=== PATIENT | female | born 2000 | race Caucasian/White ===

== ENCOUNTER 2019-04-18 18:16 | Emergency (ER) | payer SELFPAY ==
--- NOTE | 2019-04-18 18:42 | ER Document Report ---
ED Medical Screen (RME) - General Chief Complaint: Urinary Problem Stated Complaint: PAINFUL URINATION Time Seen by Provider: 04/18/19 18:38 Notes: HPI: 18-year-old female presenting to the emergency department complaining of a thick white vaginal discharge with itching and burning over the last 2 to 3 days. Reports some discomfort with urination denies pelvic pain or back pain. States she did have a fever yesterday but also developed a nonproductive cough yesterday I have greeted and performed a rapid initial assessment of this patient. A comprehensive ED assessment and evaluation of the patient, analysis of test results and completion of the medical decision making process will be conducted by additional ED providers PHYSICAL EXAMINATION: GENERAL: Well-appearing, well-nourished and in no acute distress. HEAD: Atraumatic, normocephalic. EYES: sclera anicteric, conjunctiva are normal. ENT: Moist mucous membranes. NECK: Normal range of motion LUNGS: Normal work of breathing, clear to auscultation HEART: 2+ radial pulses bilaterally, regular rate and rhythm ABD: limited by positioning for exam in triage. No tenderness on palpation, exam deferred in triage EXTREMITIES: no pitting or edema. No cyanosis. NEUROLOGICAL: No focal neurological deficits. Moves all extremities spontaneously and on command. PSYCH: Normal mood, normal affect. SKIN: Warm, Dry, normal turgor, no rashes or lesions noted. - Related Data Allergies/Adverse Reactions: No Known Allergies Allergy (Verified 04/18/19 18:37) Physical Exam - Vital signs Vitals: Temp Pulse Resp BP Pulse Ox 98.2 F 78 18 127/81 H 100 04/18/19 18:21 04/18/19 18:21 04/18/19 18:21 04/18/19 18:21 04/18/19 18:21 Course - Vital Signs Vital signs: Temp Pulse Resp BP Pulse Ox 98.2 F 78 18 127/81 H 100 04/18/19 18:21 04/18/19 18:21 04/18/19 18:21 04/18/19 18:21 04/18/19 18:21
[2019-04-18 19:11] LABS: APPEARANCE,URINE SLIGHTLY-CLOUDY; BILIRUBIN,URINE NEGATIVE (NEGATIVE); COLOR,URINE YELLOW; GLUCOSE, URINE NEGATIVE (NEGATIVE); KETONES,URINE TRACE mg/dL (NEGATIVE); LEUKOCYTE ESTERASE,URINE SMALL (NEGATIVE); NITRITE,URINE NEGATIVE (NEGATIVE); PROTEIN,URINE NEGATIVE (NEGATIVE); URINE SPECIFIC GRAVITY 1.019; UROBILINOGEN,URINE NEGATIVE mg/dL (<2.0)
[2019-04-18] MEDS ORDERED: IBUPROFEN 400 MG TABLET PO ONE (20:53)
--- NOTE | 2019-04-18 20:54 | ER Document Report ---
ED General - General Chief Complaint: Vaginal Itching Stated Complaint: PAINFUL URINATION Time Seen by Provider: 04/18/19 18:38 Notes: Patient is a 18 year old female that comes to the emergency department for chief complaint of vaginal discharge and painful urination for the past 2 days. She denies abdominal pain, flank pain. She had her menstrual cycle about 3 weeks ago. She is sexually active with her boyfriend. Patient also states that today she developed a fever, highest fever was up to 101 F, she also states that she has a very sore throat and she feels like she has strep. She states she gets strep annually. She also has an occasional mild cough. She denies any other complaints. She denies any surgeries or daily medications. She smokes, denies recreational drugs. TRAVEL OUTSIDE OF THE [place] IN LAST 30 DAYS: No - Related Data Allergies/Adverse Reactions: No Known Allergies Allergy (Verified 04/18/19 18:37) Past Medical History - General Information source: Patient - Social History Smoking Status: Current Every Day Smoker Chew tobacco use (# tins/day): No Frequency of alcohol use: Occasional Drug Abuse: None Lives with: Spouse/Significant other Family History: Reviewed & Not Pertinent Patient has suicidal ideation: No Patient has homicidal ideation: No - Medical History Medical History: Negative Surgical Hx: Negative - Immunizations Immunizations up to date: Yes Hx Diphtheria, Pertussis, Tetanus Vaccination: Yes Review of Systems - Review of Systems Constitutional: See HPI EENT: See HPI Cardiovascular: No symptoms reported Respiratory: See HPI Gastrointestinal: No symptoms reported Genitourinary: See HPI Female Genitourinary: See HPI Musculoskeletal: No symptoms reported Skin: No symptoms reported Hematologic/Lymphatic: No symptoms reported Neurological/Psychological: No symptoms reported Physical Exam - Vital signs Vitals: Temp Pulse Resp BP Pulse Ox 98.2 F 78 18 127/81 H 100 04/18/19 18:21 04/18/19 18:21 04/18/19 18:21 04/18/19 18:21 04/18/19 18:21 - Notes Notes: GENERAL: Alert, interacts well. No acute distress. Smiling and talkative HEAD: Normocephalic, atraumatic. EYES: Pupils equal, round, and reactive to light. Extraocular movements intact. ENT: Oral mucosa moist, tongue midline. There is a patchy erythematous rash on the posterior pharynx, tonsillitis with erythema and small exudates especially on the right. Uvula is normal, patent airway, no evidence of peritonsillar abscess. Unremarkable sinuses and nasal exam. Unremarkable ears and eyes. NECK: Full range of motion. Supple. Trachea midline. LUNGS: Clear to auscultation bilaterally, no wheezes, rales, or rhonchi. No respiratory distress. HEART: Regular rate and rhythm. No murmur ABDOMEN: Soft, non-tender. Non-distended. GENITOURINARY: Copious amount of whitish-yellowish vaginal discharge. No severe/overt cervical motion tenderness. No bleeding. No lesions or external rash noted. No other concerning findings. Exam performed with Franci CARROLL at bedside. EXTREMITIES: Moves all 4 extremities spontaneously. No edema, normal radial and dorsalis pedis pulses bilaterally. No cyanosis. BACK: no cervical, thoracic, lumbar midline tenderness. No saddle anesthesia, normal distal neurovascular exam. Moves all extremities in full range of motion. NEUROLOGICAL: Alert and oriented x3. Normal speech. Cranial nerves II through XII grossly intact. PSYCH: Normal affect, normal mood. SKIN: Warm, dry, normal turgor. No rashes or lesions noted. Course - Re-evaluation Re-evalutation: Patient with copious amount of vaginal discharge but no notable abdominal tenderness or cervical motion tenderness. negative. Urine borderline. Throat does show exudative pharyngitis but strep is negative. Patient has no cold symptoms otherwise. Patient will be covered for UTI/strep with Keflex, she will be treated for trichomonas noted on wet mount with Flagyl, she was given Rocephin and azithromycin here. I discussed all results in detail, discussed follow-up, expectations, treatment of partner, return precautions. Patient states appreciation and agreement. Stable and well- appearing at time of discharge. - Vital Signs Vital signs: Temp Pulse Resp BP Pulse Ox 98.1 F 73 16 105/65 100 04/18/19 22:28 04/18/19 22:28 04/18/19 22:28 04/18/19 22:28 04/18/19 22:28 - Laboratory Laboratory results interpreted by me: 04/18/19 18:45 Urine Ketones TRACE H Urine Blood SMALL H Ur Leukocyte Esterase SMALL H Discharge - Discharge Clinical Impression: Dysuria, Vaginal discharge, Trichomonal infection, Exudative pharyngitis Condition: Stable Disposition: HOME, SELF-CARE Additional Instructions: You are positive for trichomonas, and STD. Avoid intercourse for 1 week. Any sexual partner also needs to be treated. Take Flagyl as prescribed. You have also been covered for general pelvic infections. We are also treating for your urinary symptoms and potential urinary tract infection, this will also cover you for a throat infection, take the Keflex as prescribed to completion. Follow-up with primary care for additional evaluation management. Return if you worsen including spiking fevers, developing severe abdominal pain, vomiting, difficulty swallowing or breathing, or any other concerning symptoms. Prescriptions: Metronidazole [Flagyl 500 mg Tablet] 500 mg PO BID 7 Days #14 tablet Cephalexin Monohydrate [Keflex 500 mg Capsule] 500 mg PO BID 10 Days #20 capsule Forms: Return to Work
[2019-04-18 21:24] LABS: BACTERIA (WET MOUNT) 3+ BACTERIA SEEN; EPITHELIALS (WET MOUNT) 3+ EPITHELIALS SEEN; RBCS (WET MOUNT) 1+ RBCS SEEN; T.VAGINALIS (WET MOUNT) TRICHOMONAS SEEN; WBCS (WET MOUNT) 3+ WBCS SEEN; YEAST (WET MOUNT) NO YEAST SEEN
[2019-04-18] MEDS ORDERED: AZITHROMYCIN 250 MG TABLET PO ONE (21:40)
[2019-04-18] MEDS ORDERED: LIDOCAINE 1% INJ-PF (10 MG/ML) 30 ML SDV INJ ONE (21:41)
[2019-04-18] MEDS ORDERED: CEFTRIAXONE INJ 250 MG VIAL IM ONE (21:41)
[2019-04-18] MEDS ORDERED: ONDANSETRON 4 MG TAB.RAPDIS PO ONE (21:41)
[2019-04-18 22:30] VITALS: BP 105/65
[2019-04-18 22:38] LABS: CHLAM PCR NOT DETECTED (NOT DETECT)
== END 2019-04-18 22:28 | disposition home or self-care (01) ==
LOC: ER 18:16
DX: A59.00 Urogenital trichomoniasis, unspecified (principal); J02.9 Acute pharyngitis, unspecified; R30.0 Dysuria; R05 Cough; F17.200 Nicotine dependence, unspecified, uncomplicated
CPT/HCPCS: 99283; 96372; 87070; 87210; 87880; 81025; 87077; 81001; 87491; 87591; S0119; J3490 ×2; J0696

== ENCOUNTER 2019-07-30 09:28 | Emergency (ER) | payer OTHER ==
[2019-07-30 09:34] VITALS: BP 137/86
[2019-07-30 11:22] LABS: ABSOLUTE LYMPHOCYTES (AUTO) 1.3 10^3/uL (0.5-4.7); ABSOLUTE MONOCYTES (AUTO) 0.6 10^3/uL (0.1-1.4); ABSOLUTE NEUT (AUTO) 4.2 10^3/uL (1.7-8.2); BASOPHILS % (AUTO) 0.5 % (0-2); EOSINOPHILS % (AUTO) 0.5 % (0-6); HEMATOCRIT 42.2 % (36.0-47.0); HEMOGLOBIN 14.3 g/dL (12.0-15.5); LYMPHOCYTES % (AUTO) 20.5 % (13-45); MEAN CORPUSCULAR VOLUME 85 fl (80-97); MONOCYTES % (AUTO) 9.2 % (3-13); PLATELET COUNT 225 10^3/uL (150-450); RED BLOOD COUNT 4.95 10^6/uL (3.72-5.28); RED CELL DISTRIBUTION WIDTH 13.3 % (11.5-14.0); SEGMENTED NEUTROPHILS % (AUTO) 69.3 % (42-78); TOTAL CELLS COUNTED % (AUTO) 100 %; WHITE BLOOD COUNT 6.1 10^3/uL (4.0-10.5)
[2019-07-30 11:29] LABS: AMORPHOUS SEDIMENT,URINE TRACE /HPF; APPEARANCE,URINE CLOUDY; BILIRUBIN,URINE NEGATIVE (NEGATIVE); COLOR,URINE YELLOW; GLUCOSE, URINE NEGATIVE (NEGATIVE); KETONES,URINE NEGATIVE (NEGATIVE); LEUKOCYTE ESTERASE,URINE SMALL (NEGATIVE); NITRITE,URINE NEGATIVE (NEGATIVE); PROTEIN,URINE NEGATIVE (NEGATIVE); URINE SPECIFIC GRAVITY 1.015; UROBILINOGEN,URINE NEGATIVE mg/dL (<2.0)
--- NOTE | 2019-07-30 12:09 | ER Document Report ---
Entered by FATIMAH MOHAN SCRIBE 07/30/19 1133 Acting as scribe for:ROBERT FUCHS MD ED GI/ - General Chief Complaint: Vaginal Discharge Stated Complaint: ABDOMINAL PAIN/DISCHARGE Time Seen by Provider: 07/30/19 11:29 Mode of Arrival: Ambulatory Information source: Patient Notes: This 18-year-old female patient presents to the emergency department today with complaints of right-sided abdominal pain which woke her up this morning at 7:00 AM. Patient states that last night she noticed some "liquidy vaginal discharge" as well with associated vaginal itching which has now subsided. Patient states today when she went to urinate she noticed that it morton when running out and that her vaginal area was red in color. Patient's last menstrual period was on 07/05. Patient denies fevers. TRAVEL OUTSIDE OF THE [place] IN LAST 30 DAYS: No - Related Data Allergies/Adverse Reactions: No Known Allergies Allergy (Verified 07/30/19 11:32) Home Medications: Pt. arrived via personal vehicle. C/O of LRQ messer and vaginal discharge. Pt. stated that she was seen in this department approximately 2 months ago for an STD. Pt. states that she is unsure if this is related. Pt. is A & O x4 and is in no acute distress at this time Past Medical History - Social History Smoking Status: Current Every Day Smoker Chew tobacco use (# tins/day): No Frequency of alcohol use: Occasional Drug Abuse: None Family History: Reviewed & Not Pertinent Patient has homicidal ideation: No - Immunizations Immunizations up to date: Yes Hx Diphtheria, Pertussis, Tetanus Vaccination: Yes Physical Exam - Vital signs Vitals: Temp Pulse Resp BP Pulse Ox 98.5 F 77 16 137/86 H 100 07/30/19 09:32 07/30/19 09:32 07/30/19 09:32 07/30/19 09:32 07/30/19 09:32 - General General appearance: Appears well, Alert In distress: None - HEENT Head: Normocephalic, Atraumatic Eyes: Normal Pupils: PERRL - Respiratory Respiratory status: No respiratory distress Breath sounds: Normal - Cardiovascular Rhythm: Regular Heart sounds: Normal auscultation Murmur: No - Abdominal Inspection: Normal Bowel sounds: Normal Tenderness: Tender - Tender in the right lower quadrant and right pelvic region. No rebound. - Genitourinary External exam: Other - The inner labia and the upper introitus has some erythema and whitish discharge that would suggest yeast infection. The area is not tender to palpate. Patient could not tolerate speculum exam, so swabs were obtained with blind swab technique. Bimanual exam shows right adnexal te nderness, cervical motion uterine and left adnexal palpation are not tender. - Back Back: Normal. No: CVA tenderness - Extremities General upper extremity: Normal inspection General lower extremity: Normal inspection - Neurological Neuro grossly intact: Yes - Psychological Associated symptoms: Normal affect, Normal mood - Skin Skin Temperature: Warm Skin Moisture: Dry Skin Color: Normal Course - Vital Signs Vital signs: Temp Pulse Resp BP Pulse Ox 98.5 F 77 16 137/86 H 100 07/30/19 11:23 07/30/19 09:32 07/30/19 09:32 07/30/19 09:32 07/30/19 09:32 - Laboratory Result Diagrams: 07/30/19 11:07 Laboratory results interpreted by me: 07/30/19 11:07 Urine Blood SMALL H Ur Leukocyte Esterase SMALL H - Diagnostic Test Radiology reviewed: Image reviewed, Reports reviewed - Transvaginal ultrasound was unremarkable with normal-appearing ovaries. Discharge - Discharge Clinical Impression: Pelvic pain, Vaginal irritation Condition: Stable Disposition: HOME, SELF-CARE Additional Instructions: Pelvic Pain There are many causes of pain in the pelvic area. The cause could be the tubes, ovaries, uterus, intestines, appendix, pelvic muscles and connective tiss ue, or the urinary tract. The cause of your pelvic pain is not clear. However, it seems safe to treat you outside the hospital. If the pain sounds like a temporary problem, we sometimes wait to see if it goes away. Other patients may need additional tests, such as pelvic ultrasound or cultures. Conditions may change. Call us or come back for reexamination if any problems occur, such as: (1) Pain that becomes more severe, steady, or becomes concentrated in one specific area. Also, pain that is more severe with movement or coughing. (2) Vomiting that persists or becomes more frequent. (3) Blood in the vomitus, urine, or bowel movements. Blood in the stool may have a tarry or black appearance. (4) Shaking chills or fever greater than 100 degrees. (5) The abdomen becomes more distended or swollen. (6) Bowel movements cease. (7) Heavy vaginal bleeding. The ultrasound showed normal ovaries, so the discomfort you are having may be due to infection. You will be started on doxycycline to treat the pelvic pain and possible infection. The irritated reddish vaginal area is suspicious for yeast infection, so you will be put on Diflucan for the next few days, as being on antibiotics may make the problem worse. Take Tylenol and ibuprofen for pain as needed. Follow-up with [facility] if not improving. RETURN TO THE EMERGENCY ROOM IF ANY NEW OR WORSENING SYMPTOMS. Prescriptions: Fluconazole [Diflucan 100 Mg Tablet] 100 mg PO DAILY #3 tablet Doxycycline Hyclate 100 mg PO BID #14 tablet.dr Forms: Return to Work Referrals: [facility] [Provider Group] - Follow up as needed I personally performed the services described in the documentation, reviewed and edited the documentation which was dictated to the scribe in my presence, and it accurately records my words and actions.
[2019-07-30 12:16] LABS: BACTERIA (WET MOUNT) 3+ BACTERIA SEEN; EPITHELIALS (WET MOUNT) 3+ EPITHELIALS SEEN; T.VAGINALIS (WET MOUNT) NO TRICHOMONAS SEEN; WBCS (WET MOUNT) 1+ WBCS SEEN; YEAST (WET MOUNT) NO YEAST SEEN
--- NOTE | 2019-07-30 12:59 | RADIOLOGY REPORT (SQ) ---
EXAM DESCRIPTION: U/S NON-OB PELVIS TV W/O DOP IMAGES COMPLETED DATE/TIME: 07/30/2019 12:45 pm REASON FOR STUDY: Right adnexal pain COMPARISON: None. TECHNIQUE: Dynamic and static grayscale images acquired of the pelvis via transvaginal approach and recorded on PACS. Additional selected color Doppler and spectral images recorded. LIMITATIONS: None. FINDINGS: UTERUS: Contour normal. No mass. ENDOMETRIAL STRIPE: No focal or generalized thickening. No masses. CERVIX: No nabothian cysts. RIGHT OVARY AND DOPPLER: Normal size. No worrisome masses. Normal arterial vascular flow without evid ence for torsion. LEFT OVARY AND DOPPLER: Normal size. No worrisome masses. Normal arterial vascular flow without evide nce for torsion. FREE FLUID: None noted. OTHER: No other significant finding. MEASUREMENTS: UTERUS: 7.8 x 3.9 x 3.7 cm ENDOMETRIAL STRIPE: 0.8 cm RIGHT OVARY: 3.9 x 3.0 x 2.3 cm LEFT OVARY: 4.4 x 2.0 x 2.7 cm IMPRESSION: NORMAL TRANSVAGINAL PELVIC ULTRASOUND. TECHNICAL DOCUMENTATION: JOB ID: [id number] [employer]- All Rights Reserved Rev-06/30 Reading location - IP/workstation name: [email or web address]
[2019-07-30 13:46] LABS: CHLAM PCR NOT DETECTED (NOT DETECT)
== END 2019-07-30 15:05 | disposition home or self-care (01) ==
LOC: ER 09:28
DX: R10.2 Pelvic and perineal pain (principal); N89.8 Other specified noninflammatory disorders of vagina; L53.9 Erythematous condition, unspecified; F17.200 Nicotine dependence, unspecified, uncomplicated
CPT/HCPCS: 36415; 76830; 81001; 84702; 85025; 87210; 87491; 87591; 99284

== ENCOUNTER 2019-08-02 15:04 | Emergency (ER) | payer OTHER ==
[2019-08-02] MEDS ORDERED: NORMAL SALINE 1000 ML 1,000 ML IV ONE (15:59)
[2019-08-02 16:23] LABS: ABSOLUTE LYMPHOCYTES (AUTO) 1.4 10^3/uL (0.5-4.7); ABSOLUTE MONOCYTES (AUTO) 0.5 10^3/uL (0.1-1.4); ABSOLUTE NEUT (AUTO) 5.1 10^3/uL (1.7-8.2); BASOPHILS % (AUTO) 0.4 % (0-2); EOSINOPHILS % (AUTO) 0.4 % (0-6); HEMATOCRIT 40.6 % (36.0-47.0); LYMPHOCYTES % (AUTO) 20.2 % (13-45); MEAN CORPUSCULAR HEMOGLOBIN 29.2 pg (27.0-33.4); MEAN CORPUSCULAR HGB CONC 34.4 g/dL (32.0-36.0); MEAN CORPUSCULAR VOLUME 85 fl (80-97); MONOCYTES % (AUTO) 7.5 % (3-13); PLATELET COUNT 230 10^3/uL (150-450); RED BLOOD COUNT 4.79 10^6/uL (3.72-5.28); RED CELL DISTRIBUTION WIDTH 13.3 % (11.5-14.0); SEGMENTED NEUTROPHILS % (AUTO) 71.5 % (42-78); TOTAL CELLS COUNTED % (AUTO) 100 %; WHITE BLOOD COUNT 7.1 10^3/uL (4.0-10.5)
[2019-08-02 16:32] LABS: APPEARANCE,URINE CLEAR; BILIRUBIN,URINE NEGATIVE (NEGATIVE); COLOR,URINE YELLOW; GLUCOSE, URINE NEGATIVE (NEGATIVE); KETONES,URINE NEGATIVE (NEGATIVE); LEUKOCYTE ESTERASE,URINE NEGATIVE (NEGATIVE); NITRITE,URINE NEGATIVE (NEGATIVE); PROTEIN,URINE NEGATIVE (NEGATIVE); URINE SPECIFIC GRAVITY 1.016; UROBILINOGEN,URINE NEGATIVE mg/dL (<2.0)
[2019-08-02 16:45] LABS: ALBUMIN 4.7 g/dL (3.5-5.0); ALKALINE PHOSPHATASE 59 U/L (38-126); ANION GAP 6 (5-19); ASPARTATE AMINO TRANSFERASE 24 U/L (14-36); BILIRUBIN,TOTAL 0.4 mg/dL (0.2-1.3); BLOOD UREA NITROGEN 12 mg/dL (7-20); CALCIUM 9.5 mg/dL (8.4-10.2); CARBON DIOXIDE 27 mmol/L (22-30); CHLORIDE 106 mmol/L (98-107); GLUCOSE 84 mg/dL (75-110); POTASSIUM 4.2 mmol/L (3.6-5.0); TOTAL PROTEIN 7.6 g/dL (6.3-8.2)
--- NOTE | 2019-08-02 17:15 | ER Document Report ---
ED General - General Chief Complaint: Flank Pain Stated Complaint: FLANK PAIN Time Seen by Provider: 08/02/19 15:54 Mode of Arrival: Ambulatory Information source: Patient Notes: triage note 08/02/19 15:56 - ED Nursing Note by [facility] [id number] : 2000 Patient Age: 18 Patient with complaint of R abdominal flank and back pain. Was seen for this 3 days ago. Was put on antibiotics. States that pain has not improved. my note 18-year-old female arrives by POV with chief complaint of right inguinal and right CVA pain for 3 days. [place] [employer] [place] and had to call off work today because of 8 out of 10 pain. She initially came here 3 days ago complaining of the same symptoms that were acute. She has been taking her doxycycline and Diflucan as prescribed by staff here. She had ultrasound done and also a pelvic done and these were negative according to patient history. She reports her pain is 3 out of 10 when she is lying down but movement causes her pain to be 8 out of 10. TRAVEL OUTSIDE OF THE [place] IN LAST 30 DAYS: No - HPI Onset: Other - 3 days prior Severity: Moderate Pain Level: 3 Associated symptoms: None Exacerbated by: Movement - Related Data Allergies/Adverse Reactions: No Known Allergies Allergy (Verified 08/02/19 15:53) Home Medications: Doxycycline. Diflucan Past Medical History - Social History Smoking Status: Never Smoker Chew tobacco use (# tins/day): No Frequency of alcohol use: None Drug Abuse: None Family History: Reviewed & Not Pertinent Patient has suicidal ideation: No Patient has homicidal ideation: No - Immunizations Immunizations up to date: Yes Hx Diphtheria, Pertussis, Tetanus Vaccination: Yes Review of Systems - Review of Systems Constitutional: No symptoms reported EENT: No symptoms reported Cardiovascular: No symptoms reported Respiratory: No symptoms reported Gastrointestinal: See HPI, Abdominal pain Genitourinary: No symptoms reported Female Genitourinary: No symptoms reported Musculoskeletal: No symptoms reported Skin: No symptoms reported Hematologic/Lymphatic: No symptoms reported Neurological/Psychological: No symptoms reported Physical Exam - Vital signs Vitals: Temp Pulse Resp BP Pulse Ox 98.3 F 68 16 121/72 100 08/02/19 15:26 08/02/19 15:26 08/02/19 15:26 08/02/19 15:26 08/02/19 15:26 Interpretation: Normal - General General appearance: Alert - HEENT Head: Normocephalic, Atraumatic Eyes: Normal Pupils: PERRL - Respiratory Respiratory status: No respiratory distress Chest status: Nontender Breath sounds: Normal Chest palpation: Normal - Cardiovascular Rhythm: Regular Heart sounds: Normal auscultation Murmur: No - Abdominal Inspection: Normal Distension: No distension Bowel sounds: Normal Tenderness: Tender - RLQ and right flank pain on p/p Organomegaly: No organomegaly - Rectal Stool: Other - deferred - Genitourinary Speculum exam: Other - deferred - Back Back: Tender - r cva pain - Extremities General upper extremity: Normal inspection, Nontender, Normal color, Normal ROM, Normal temperature General lower extremity: Normal inspection, Nontender, Normal color, Normal ROM, Normal temperature, Normal weight bearing. No: Dustin's sign - Neurological Neuro grossly intact: Yes Cognition: Normal Orientation: AAOx4 [place]cell[place] Coma Scale Eye Opening: Spontaneous [place] Coma Scale Verbal: Oriented [place] Coma Scale Motor: Obeys Commands [place] Coma Scale Total: 15 Speech: Normal Motor strength normal: LUE, RUE, LLE, RLE Sensory: Normal - Psychological Associated symptoms: Normal affect - Skin Skin Temperature: Warm Skin Moisture: Dry Course - Vital Signs Vital signs: Temp Pulse Resp BP Pulse Ox 98.3 F 68 16 121/72 100 08/02/19 15:26 08/02/19 15:26 08/02/19 15:26 08/02/19 15:26 08/02/19 15:26 - Laboratory Result Diagrams: 08/02/19 16:10 08/02/19 16:10 Laboratory results interpreted by me: 08/02/19 16:10 Urine Blood SMALL H - Diagnostic Test Radiology reviewed: Reports reviewed Critical Care Note - Critical Care Note Total time excluding time spent on procedures (mins): 90 Comments: I advised patient of negative labs and negative CT scan. Radiologist read scan is being without reason for her tenderness to her right lower quadrant and right flank. On palpation patient has tenderness when she attempts to put pressure with her right hand to her right flank and right lower quadrant. Discharge - Discharge Clinical Impression: Acute right flank pain Condition: Good Disposition: HOME, SELF-CARE Additional Instructions: Follow-up with personal doctor this week if symptoms continue take medicines as directed encourage fluids avoid lifting bending or twisting. 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 Prescriptions: Etodolac [Lodine] 400 mg PO BID #14 tablet Chlorzoxazone [Parafon Forte Dsc 500 Mg Tablet] 500 mg PO BID PRN #15 tablet PRN Reason: Pain Scale Of 1 Forms: Return to Work
--- NOTE | 2019-08-02 18:10 | RADIOLOGY REPORT (SQ) ---
EXAM DESCRIPTION: CT ABD/PELVIS NO ORAL OR IV IMAGES COMPLETED DATE/TIME: 08/02/2019 5:49 pm REASON FOR STUDY: r flank pain COMPARISON: None. TECHNIQUE: CT scan of the abdomen and pelvis performed without intravenous or oral contrast. Images reviewed with lung, soft tissue, and bone windows. Reconstructed coronal and sagittal MPR images revi ewed. All images stored on PACS. All CT scanners at this facility use dose modulation, iterative reconstruction, and/or weight based d osing when appropriate to reduce radiation dose to as low as reasonably achievable (ALARA). [facility]: Dose Right [facility]: CareDose [facility]: Dose Right [facility]: Teradose 4D [facility]: Smart MindSet Rx RADIATION DOSE: CT Rad equipment meets quality standard of care and radiation dose reduction techniq ues were employed. CTDIvol: 4.8 mGy. DLP: 229 mGy-cm.mGy. LIMITATIONS: Lack IV and oral contrast. Paucity of intra- abdominal fat. FINDINGS: LOWER CHEST: No significant findings. No nodules or infiltrates. NON-CONTRASTED LIVER, SPLEEN, ADRENALS: Evaluation limited by lack of IV contrast. No identified sign ificant masses. PANCREAS: No masses. No peripancreatic inflammatory changes. GALLBLADDER: No identified stones by CT criteria. No inflammatory changes to suggest cholecystitis. RIGHT KIDNEY AND URETER: No suspicious masses. Assessment limited by lack of IV contrast. No signif icant calcifications. No hydronephrosis or hydroureter. LEFT KIDNEY AND URETER: No suspicious masses. Assessment limited by lack of IV contrast. No signifi cant calcifications. No hydronephrosis or hydroureter. AORTA AND RETROPERITONEUM: No aneurysm. No retroperitoneal masses or adenopathy. BOWEL AND PERITONEAL CAVITY: No obvious masses or inflammatory changes. No free fluid. APPENDIX: Not identified. No pericecal inflammatory changes are seen. PELVIS, BLADDER, AND ABDOMINAL WALL:No abnormal masses. No free fluid. Bladder normal. BONES: No significant findings. OTHER: No other significant finding. IMPRESSION: No significant acute process in the abdomen or pelvis. The appendix is not identified, but no pericecal inflammatory changes are seen. COMMENT: Quality ID # [id number]: Final reports with documentation of one or more dose reduction techniques (e.g., Automated exposure control, adjustment of the mA and/or kV according to patient size, use of iterative reconstruction technique) TECHNICAL DOCUMENTATION: JOB ID: [id number] 2010 [employer]- All Rights Reserved Reading location - IP/workstation name: [email or web address]
[2019-08-02 18:38] VITALS: BP 117/71
--- NOTE | 2019-08-02 18:48 | ER Document Report ---
ED Medical Screen (RME) - General Chief Complaint: Flank Pain Stated Complaint: FLANK PAIN Time Seen by Provider: 08/02/19 15:54 Notes: Patient is a 18-year-old female who presents to the emergency department with a chief complaint of right-sided flank pain and abdominal pain. Patient states that her symptoms started 8 days ago. She was seen here in the emergency department and was started on doxycycline. States that she is not any better. Exam: Tender right mid abdomen I have greeted and performed a rapid initial assessment of this patient. A comprehensive ED assessment and evaluation of the patient, analysis of test results and completion of medical decision making process will be conducted by an additional ED providers. TRAVEL OUTSIDE OF THE [place] IN LAST 30 DAYS: No - Related Data Allergies/Adverse Reactions: No Known Allergies Allergy (Verified 08/02/19 15:53) Home Medications: Doxycycline. Diflucan Past Medical History - Social History Chew tobacco use (# tins/day): No Frequency of alcohol use: None Drug Abuse: None - Immunizations Immunizations up to date: Yes Hx Diphtheria, Pertussis, Tetanus Vaccination: Yes Physical Exam - Vital signs Vitals: Temp Pulse Resp BP Pulse Ox 98.3 F 68 16 121/72 100 08/02/19 15:26 08/02/19 15:26 08/02/19 15:26 08/02/19 15:26 08/02/19 15:26 Course - Vital Signs Vital signs: Temp Pulse Resp BP Pulse Ox 98.3 F 68 16 121/72 100 08/02/19 15:26 08/02/19 15:26 08/02/19 15:26 08/02/19 15:26 08/02/19 15:26
== END 2019-08-02 18:48 | disposition home or self-care (01) ==
LOC: ER 15:04
DX: R10.9 Unspecified abdominal pain (principal)
CPT/HCPCS: 36415; 74176; 80053; 81001; 83690; 84703; 85025; 99285

== ENCOUNTER 2019-08-20 20:39 | Emergency (ER) | payer OTHER ==
[2019-08-20] MEDS ORDERED: KETOROLAC TROMETHAMINE INJ/PF 30 MG/1 ML SDV IM ONE (21:09)
--- NOTE | 2019-08-20 21:09 | ER Document Report ---
ED Medical Screen (RME) - General Chief Complaint: Shoulder Injury Stated Complaint: FALL/SHOULDER PAIN Time Seen by Provider: 08/20/19 21:04 Mode of Arrival: Ambulatory Information source: Patient Notes: 18-year-old female presented to ED for complaint of right shoulder pain. She has had shoulder pain for a while and then tonight she fell on her shoulder causing the pain to be much worse. She states she fell about an hour ago came right to the emergency room. She is alert oriented respirations regular and unlabored speaking in full sentences. 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 She lives with her friend. I have greeted and performed a rapid initial assessment of this patient. A comprehensive ED assessment and evaluation of the patient, analysis of test results and completion of medical decision making process will be conducted by an additional ED providers. TRAVEL OUTSIDE OF THE [place] IN LAST 30 DAYS: No - Related Data Allergies/Adverse Reactions: No Known Allergies Allergy (Verified 08/20/19 20:57) Past Medical History - Immunizations Immunizations up to date: Yes Hx Diphtheria, Pertussis, Tetanus Vaccination: Yes Physical Exam - Vital signs Vitals: Temp Pulse Resp BP Pulse Ox 98.9 F 88 16 126/80 H 100 08/20/19 20:42 08/20/19 20:42 08/20/19 20:42 08/20/19 20:42 08/20/19 20:42 Course - Vital Signs Vital signs: Temp Pulse Resp BP Pulse Ox 98.9 F 88 16 126/80 H 100 08/20/19 20:42 08/20/19 20:42 08/20/19 20:42 08/20/19 20:42 08/20/19 20:42
--- NOTE | 2019-08-20 21:48 | RADIOLOGY REPORT (SQ) ---
EXAM DESCRIPTION: Three views of the left shoulder, x-ray CLINICAL HISTORY: 18 years Female, Pain and injury COMPARISON: None. FINDINGS: The glenohumeral joint is located. No fracture, subluxation or dislocation. The clavicle and scapula are intact. No degenerative changes seen. Visualized portion of the left chest is normal. IMPRESSION: Unremarkable radiographs of the left shoulder. No acute process.
--- NOTE | 2019-08-20 22:26 | ER Document Report ---
HPI - HPI Patient complains to provider of: Left Shoulder Pain Time Seen by Provider: 08/20/19 21:04 Onset: Just prior to arrival Pain Level: 4 Context: 18-year-old female presents to the emergency room complaining of left shoulder pain. 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 Patient denies any previous trauma or injury. States the shoulder is been bothering her for the past week while practicing at home and doing tricks on the pole. No history of previous trauma or injury to her left shoulder. Patient is right- handed. Has not taken any medications for her symptoms. Denies . Associated Symptoms: None Exacerbated by: Movement Relieved by: Denies Similar symptoms previously: No Recently seen / treated by doctor: No - ROS Systems Reviewed and Negative: Yes All other systems reviewed and negative - CONSTITUTIONAL Constitutional: DENIES: Fever - EENT EENT: DENIES: Sore Throat, Ear Pain - NEURO Neurology: DENIES: Headache, Weakness - REPRODUCTIVE LMP: 08/18/19 Reproductive: DENIES: : - MUSCULOSKELETAL Musculoskeletal: REPORTS: Extremity pain - DERM Skin Color: Normal, [place] Skin Problems: None Past Medical History - General Information source: Patient - Social History Smoking Status: Current Every Day Smoker Frequency of alcohol use: Social Drug Abuse: None Family History: Reviewed & Not Pertinent Patient has homicidal ideation: No - Immunizations Immunizations up to date: Yes Hx Diphtheria, Pertussis, Tetanus Vaccination: Yes Vertical Provider Document - CONSTITUTIONAL Agree With Documented VS: Yes Exam Limitations: No Limitations General Appearance: Mild Distress - INFECTION CONTROL TRAVEL OUTSIDE OF THE [place] IN LAST 30 DAYS: No - HEENT HEENT: Atraumatic, Normocephalic - NECK Neck: Normal Inspection, Supple, Thyroid Normal - RESPIRATORY Respiratory: Breath Sounds Normal, No Respiratory Distress, Chest Non-Tender - CARDIOVASCULAR Cardiovascular: Regular Rate, Regular Rhythm, No Murmur - BACK Back: Normal Inspection. negative: CVA Tenderness-Right, CVA Tenderness-Left - MUSCULOSKELETAL/EXTREMETIES Musculoskeletal/Extremeties: Tender - Tenderness on palpation to the left posterior scapula, or tenderness over the left AC joint. Positive impingement. No obvious deformity noted. Full range of motion without pain to left elbow with no deformity noted. Positive range of motion without pain or deformity to the left wrist. - NEURO Level of Consciousness: Awake, Alert Motor/Sensory: No Motor Deficit, No Sensory Deficit Notes: Positive left radial pulse. Capillary refill less than 3 seconds. - DERM Integumentary: Warm, Dry, No Rash Course - Re-evaluation Re-evalutation: 08/20/19 22:47 Patient is resting comfortably minimal improvement in pain after Toradol. Sling applied by nursing staff as documented. Reviewed x-ray results with patient. Also need to rest, ice her left shoulder. Tylenol and/or Motrin as needed for pain. Outpatient follow-up with orthopedics if not improving in 2 to 3 days. Patient was given strict return to the emergency room guidelines. Return for any new or worsening symptoms. All questions were answered. Patient verbalized understanding and agrees with plan of care. - Vital Signs Vital signs: Temp Pulse Resp BP Pulse Ox 98.9 F 88 16 126/80 H 100 08/20/19 20:57 08/20/19 20:42 08/20/19 20:42 08/20/19 20:42 08/20/19 20:42 - Diagnostic Test Radiology reviewed: Reports reviewed Procedures - Immobilization Left Shoulder Time completed: 20:45 Pre-Proc Neuro Vasc Exam: Normal Immobilizer type: Sling Performed by: RN Post-Proc Neuro Vasc Exam: Normal Alignment checked and good: Yes Discharge - Discharge Clinical Impression: Injury of left shoulder Qualifiers: Encounter type: initial encounter Qualified Code(s): S49.92XA - Unspecified injury of left shoulder and upper arm, initial encounter Condition: Stable Disposition: HOME, SELF-CARE Instructions: Shoulder Injury ([facility]), Sling as Treatment ([facility]) Additional Instructions: rest , Ice, elevate, shoulder. Tylenol and/or Motrin as needed for pain. Wear sling for comfort. Outpatient follow-up with orthopedics if not improving in 2 to 3 days. Return for any new or worsening symptoms. Referrals: REINA GRIFFITHS MD [ACTIVE STAFF] - Follow up as needed
[2019-08-20 22:42] VITALS: BP 136/71
== END 2019-08-20 22:51 | disposition home or self-care (01) ==
LOC: ER 20:39
DX: S49.92XA Unspecified injury of left shoulder and upper arm, initial encounter (principal); M25.512 Pain in left shoulder; W17.89XA Other fall from one level to another, initial encounter; F17.200 Nicotine dependence, unspecified, uncomplicated
CPT/HCPCS: 99283; 96372; 73030; J1885

== ENCOUNTER 2019-09-02 05:57 | Emergency (ER) | payer OTHER ==
[2019-09-02 06:17] VITALS: BP 115/71
== END 2019-09-02 12:24 | disposition left against medical advice (07) ==
LOC: ER 05:57
DX: Z53.21 Procedure and treatment not carried out due to patient leaving prior to being seen by health care provider (principal)

== ENCOUNTER 2019-09-02 12:21 | Emergency (ER) | payer OTHER ==
[2019-09-02 12:33] VITALS: BP 125/77
== END 2019-09-02 14:20 | disposition left against medical advice (07) ==
LOC: ER 12:21
DX: Z53.21 Procedure and treatment not carried out due to patient leaving prior to being seen by health care provider (principal)

== ENCOUNTER 2019-09-02 20:01 | Emergency (ER) | payer OTHER ==
[2019-09-02 20:14] VITALS: BP 123/72
== END 2019-09-02 23:16 | disposition left against medical advice (07) ==
LOC: ER 20:01
DX: Z53.21 Procedure and treatment not carried out due to patient leaving prior to being seen by health care provider (principal)

== ENCOUNTER → 2019-10-14 | Outpatient (CLI) | payer OTHER ==
[2019-10-14 14:42] VITALS: BP 105/72
--- NOTE | 2019-10-14 14:42 | ER RDC ASSESSMENT REPORT ---
Intake - In the Last 14 days Have you traveled outside [place]?: Yes --City/State: [facility] Have you been in close contact with someone CONFIRMED: No Worked in Healthcare?: No - Symptoms Subjective Fever([place] feverish): No Chills: No Muscule Aches: No Runny Nose: No Sore Throat: No Cough (New or worsening chronic cough): No Shortness of breath: No Nausea or Vomiting: Yes --How many day(s)?: related Headache: No Abdominal Pain: No Diarrhea(3 or more loose stools in last 24 hours): No - Do you have any of the following Chronic lung disease: Asthma or emphysema or COPD: No Cystic Fibrosis: No Diabetes: No High Blood Pressure: No Cardiovascular Disease: No Chronic Kidney Disease: No Chronic Liver Disease: No Chronic blood disorder like Sickle Cell Disease: No Weak immune system due to disease or medication: No Neurologic condition that limits movement: No Developmental delay - Moderate to Severe: No Recent (within past 2 weeks) or current : Yes --If current: Trimester: 1st Comment: 8 weeks Morbid Obesity (>100 pounds over ideal weight): No - Objective Temperature: 97.9 F Pulse Rate: 63 Respiratory Rate: 18 Blood Pressure: 105/72 O2 Sat by Pulse Oximetry: 99 Objective: Given above, testing performed: covid Disposition: Home; Selfcare General - General Stated Complaint: asymptomatic, covid screen Time Seen by Provider: 10/14/19 14:30 Mode of Arrival: Ambulatory Information source: Patient - HPI Notes: Patient presents to clinic for COVID-19 after recent travel to [facility] with unknown contact with COVID positive individuals. Patient states her work is requiring clear COVID test before returning to work. Patient is asymptomatic with exception of nausea associated with current , 8 weeks along. They deny any cough, shortness of breath, fever, chills, muscle aches, rhinorrhea, sore throat, headache, abdominal pain or diarrhea. Patient has no acute medical concerns. - Related Data Allergies/Adverse Reactions: No Known Allergies Allergy (Verified 08/20/19 20:57) Home Medications: prenantal vitamins Past Medical History - General Information source: Patient - Social History Smoking Status: Former Smoker Family History: Reviewed & Not Pertinent - Past Medical History Cardiac Medical History: Reports: None Pulmonary Medical History: Reports: None EENT Medical History: Reports: None Neurological Medical History: Reports: None Endocrine Medical History: Reports: None Renal/ Medical History: Reports: None Malignancy Medical History: Reports: None GI Medical History: Reports: None Musculoskeletal Medical History: Reports None Skin Medical History: Reports None Psychiatric Medical History: Reports: None Traumatic Medical History: Reports: None Infectious Medical History: Reports: None Past Surgical History: Reports: None Physical Exam - General General appearance: Appears well, Alert In distress: None Notes: PHYSICAL EXAMINATION: GENERAL: Well-appearing and in no acute distress. HEAD: Atraumatic, normocephalic. EYES: sclera anicteric, conjunctiva are normal. ENT: nares patent. Moist mucous membranes. NECK: Normal range of motion, supple without lymphadenopathy. LUNGS: No increased work of breathing. Lung sounds CTAB and equal. No wheezes rales or rhonchi. HEART: Regular rate and rhythm without murmurs. ABDOMEN: Soft, nontender, normal bowel sounds, no guarding. EXTREMITIES: Normal range of motion, no pitting edema. No cyanosis. NEUROLOGICAL: A&O x 3. Normal speech. PSYCH: Normal mood, normal affect. SKIN: Warm, Dry, normal turgor, no rashes or lesions noted Patient Education/Counseling Counseling/Education: Patient presents for COVID 19 testing after close exposure to another person who has tested positive for COVID 19. Patient is asymptomatic at this time. Patient does not have emergency worrying symptoms such as difficulty breathing, shortness of breath, chest pain, pressure, confusion or cyanosis. Patient appears suitable for discharge as vital signs are stable and patient is nontoxic in appearance. Good return precautions have been discussed with patient, patient verbalized understanding and is agreeable with discharge plan of care at this time. Guidance for worsening S/SX: As a person under investigation for Covid 19, the [place] department of Health and Human Services, division of public health advises you to adhere to the following guidance until your test results are reported to you. If your test result is positive, you will receive additional information from your provider and your local health department at that time. Remain at home until you are cleared by the health provider or public health authorities. Keep a log of visitors to your home, notify any visitors to your home of your isolation status. If you plan to move to a new address or leave the county, notify the local health department in your County. Call your doctor or seek care if you have an urgent medical need. Before seeking medical care, call ahead to get instructions from the provider before arriving at the medical office clinic or hospital. Notify them that you are being tested for the virus that causes Covid 19 so that arrangements can be made, as necessary, to prevent transmission to others in the healthcare setting. Next, notify the local health department in your county. If a medical emergency arises and you need to call 911, inform the first respo nders that you are being tested for the virus that causes Covid 19. Next, notify the local health department in your county. RDC Discharge - Discharge Clinical Impression: Encounter for screening laboratory testing for COVID-19 virus in asymptomatic patient Condition: Good Disposition: Home; Selfcare
== END ==
LOC: RDC 14:15
PROVIDERS: ATTEND Registered Nurse
DX: O26.891 Other specified pregnancy related conditions, first trimester (principal); R11.0 Nausea; Z20.828 Contact with and (suspected) exposure to other viral communicable diseases; Z87.891 Personal history of nicotine dependence
CPT/HCPCS: 87635; C9803; 99201; 99211

== ENCOUNTER 2019-10-26 18:21 | Emergency (ER) | payer MEDICAID, OTHER ==
[2019-10-26 18:28] VITALS: BP 134/73
--- NOTE | 2019-10-26 18:40 | ER Document Report ---
HPI - HPI Time Seen by Provider: 10/26/19 18:28 Context: Patient is a 19-year-old female presents emergency department with a chief complaint of right arm pain. 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 Patient states that she has been taking "one thousand milligrams of ibuprofen" daily. Her last dose was this past . She states that IcyHot helps with her pain. Denies any injury. - ROS Systems Reviewed and Negative: Yes All other systems reviewed and negative - CONSTITUTIONAL Constitutional: DENIES: Fever, Chills - RESPIRATORY Respiratory: DENIES: Trouble Breathing, Coughing - GASTROINTESTINAL Gastrointestinal: DENIES: Abdominal Pain, Nausea, Patient vomiting - REPRODUCTIVE Reproductive: DENIES: : - MUSCULOSKELETAL Musculoskeletal: REPORTS: Extremity pain - Right upper arm. DENIES: Swelling - DERM Skin Color: Normal Skin Problems: None Past Medical History - General Information source: Patient - Social History Smoking Status: Unknown if Ever Smoked Family History: Reviewed & Not Pertinent - Immunizations Immunizations up to date: Yes Hx Diphtheria, Pertussis, Tetanus Vaccination: Yes Vertical Provider Document - CONSTITUTIONAL Agree With Documented VS: Yes Exam Limitations: No Limitations General Appearance: No Apparent Distress - INFECTION CONTROL TRAVEL OUTSIDE OF THE [place] IN LAST 30 DAYS: No - HEENT HEENT: Atraumatic, Normocephalic, PERRLA - NECK Neck: Normal Inspection - RESPIRATORY Respiratory: Breath Sounds Normal, No Respiratory Distress - CARDIOVASCULAR Cardiovascular: Regular Rate, Regular Rhythm Pulses: Normal: Radial - MUSCULOSKELETAL/EXTREMETIES Musculoskeletal/Extremeties: FROM, Tender - Medial biceps area - NEURO Level of Consciousness: Awake, Alert, Appropriate Motor/Sensory: No Motor Deficit, No Sensory Deficit - DERM Integumentary: Warm, Dry, No Rash Course - Re-evaluation Re-evalutation: 10/26/19 18:36 Patient's physical exam is consistent with ligament strain. Will put patient on a course of steroids. Capillary refill less than 3 seconds. Radial pulse 2+. No vascular compromise noted. Patient is to follow-up with her primary care provider. Have a low suspicion for a DVT, or any life-threatening etiology at this time. Follow-up precautions were given. Verbal discharge instructions were given to the patient. They verbalized understanding. They are stable for discharge. - Vital Signs Vital signs: Temp Pulse Resp BP Pulse Ox 98.6 F 78 18 134/73 H 98 10/26/19 18:27 10/26/19 18:27 10/26/19 18:27 10/26/19 18:27 10/26/19 18:27 Discharge - Discharge Clinical Impression: Right arm pain Condition: Stable Disposition: HOME, SELF-CARE Additional Instructions: You were seen today in the emergency department for right arm pain. Your exam is consistent with a ligament strain. Take ibuprofen 600 mg and acetaminophen 1000 mg every 6 hours as needed for your pain. Do not exceed this amount. You are also being placed on steroids to help with inflammation. I recommend that you follow-up with a primary care provider and get a referral for physical therapy. Prescriptions: Prednisone [Deltasone 20 mg Tablet] 3 tab PO DAILY 5 Days #15 tablet Forms: Return to Work
== END 2019-10-26 18:50 | disposition home or self-care (01) ==
LOC: ER 18:21
DX: M79.601 Pain in right arm (principal)
CPT/HCPCS: 99283